=== PATIENT | female | born 1965 | race African-American/Black ===

== ENCOUNTER 2017-10-05 08:14 | Inpatient (IN) ==
[2017-10-05] MEDS ORDERED: ONDANSETRON 4 MG/2 ML VIAL IV STA (08:35)
[2017-10-05] MEDS ORDERED: SODIUM CHLORIDE 0.9% 2,000 ML IV STA (08:35)
[2017-10-05 08:55] LABS: Basophils % 0.2 % (0.0-0.8); Hematocrit 35.6 VOL% (35.7-47.0); Hemoglobin 11.8 GM/DL (12.0-16.0); Immature Granulocytes % 0.7 %; Immature Granulocytes Absolute 0.07 #; Lymphocytes # 1.6 10*3/uL (1.4-4.0); Lymphocytes % 15.5 % (21.3-54.2); Mean Corpuscular HGB Conc 33.1 GM/DL (32-36); Mean Corpuscular Hemoglobin 26 PG (27-34); Mean Corpuscular Volume 78.9 FL (87-102); Mean Platelet Volume 12.1 FL (9.6-12.0); Monocytes # 0.9 10*3/uL (0.11-0.8); Monocytes % 9.2 % (1.7-12.7); Neutrophils # 7.6 10*3/uL (1.4-7.4); Neutrophils % 74.4 % (38.7-73.9); Platelet Count 241 T/CUMM (130-400); Red Blood Count 4.51 MC/CUMM (3.8-5.5); Red Cell Distribution Width 11.7 % (9.3-17.3); White Blood Count 10.2 T/CUMM (4-12)
[2017-10-05 09:13] LABS: Albumin 3.8 G/DL (3.4-5.0); Bilirubin,Total 0.9 MG/DL (0.2-1.0); Calcium 9.3 MG/DL (8.5-10.1); Osmolality,Calculated 280.8 MOS/KG (273-304); Potassium 3.4 MMOL/L (3.5-5.1); Total Protein 8.4 G/DL (6.4-8.3)
[2017-10-05] MEDS ORDERED: ONDANSETRON 4 MG/2 ML VIAL ONE (09:28)
[2017-10-05] MEDS ORDERED: ONDANSETRON 4 MG/2 ML VIAL IV PRN (09:48)
[2017-10-05 09:56] LABS: Lactic Acid 1.5 MMOL/L (0.4-2.0)
[2017-10-05] MEDS ORDERED: FAMOTIDINE 20 MG/2 ML VIAL IV SCH (10:00)
[2017-10-05] MEDS ORDERED: CIPROFLOXACIN INJ 400 MG in PREMIX 1 EACH IV SCH (11:00)
[2017-10-05] MEDS: FAMOTIDINE 20 MG/2 ML VIAL IV SCH (11:05)
[2017-10-05] MEDS: metroNIDAZOLE INJ 500 MG in PREMIX 1 EACH IV SCH ×3 (11:05→21:05)
[2017-10-05] MEDS: SODIUM CHLORIDE 0.9% 1,000 ML IV SCH ×3 (11:06→21:06)
[2017-10-05 11:41] LABS: Apearance,Urine CLOUDY (Clear); Bilirubin,Urine Negative (Negative); Blood, Urine Moderate mg/dL (Negative); Glucose,Urine (UA) Negative (Negative); Ketones,Urine Negative (Negative); Mucus,Urine Occasional /LPF (Occasional); Nitrite,Urine Negative (Negative); Protein,Urine 100 MG/DL; RBC,Urine 4 /HPF (0-4); Squamous Epithelial Cell,Urine Occasional /HPF (0-10); Urine Color Yellow (Yellow); Urine Urobilinogen < 2.0 EU/DL (0.2-1.0); WBC,Urine 4 /HPF (0-6)
[2017-10-06] MEDS: CIPROFLOXACIN INJ 200 MG in PREMIX 1 EACH IV SCH ×2 (01:56→12:37)
[2017-10-06] MEDS: SODIUM CHLORIDE 0.9% 1,000 ML IV SCH ×3 (01:59→10:08)
[2017-10-06] MEDS: metroNIDAZOLE INJ 500 MG in PREMIX 1 EACH IV SCH ×4 (04:16→21:15)
[2017-10-06 07:59] LABS: Basophils % 0.1 % (0.0-0.8); Eosinophils % 0.1 % (0.00-10.9); Hematocrit 26.1 VOL% (35.7-47.0); Immature Granulocytes % 0.5 %; Immature Granulocytes Absolute 0.04 #; Lymphocytes % 27.7 % (21.3-54.2); Mean Corpuscular HGB Conc 32.6 GM/DL (32-36); Mean Corpuscular Hemoglobin 26 PG (27-34); Mean Corpuscular Volume 80.8 FL (87-102); Mean Platelet Volume 12.5 FL (9.6-12.0); Monocytes # 0.7 10*3/uL (0.11-0.8); Monocytes % 10.1 % (1.7-12.7); Neutrophils # 4.5 10*3/uL (1.4-7.4); Neutrophils % 61.5 % (38.7-73.9); Red Cell Distribution Width 11.8 % (9.3-17.3); White Blood Count 7.3 T/CUMM (4-12)
[2017-10-06 08:01] LABS: Hemoglobin 8.5 GM/DL (12.0-16.0); Platelet Count 124 T/CUMM (130-400); Red Blood Count 3.23 MC/CUMM (3.8-5.5)
[2017-10-06] MEDS: FAMOTIDINE 20 MG/2 ML VIAL IV SCH (08:15)
[2017-10-06 08:27] LABS: Albumin 2.7 G/DL (3.4-5.0); Bilirubin,Total 0.8 MG/DL (0.2-1.0); Calcium 8.2 MG/DL (8.5-10.1); Osmolality,Calculated 293.1 MOS/KG (273-304); Potassium 3.4 MMOL/L (3.5-5.1); Total Protein 6.1 G/DL (6.4-8.3)
[2017-10-06 08:49] LABS: Giant Platelets Few; Hypochromasia 1+
[2017-10-06 08:50] LABS: Microcytosis Slight; Ovalocytes Slight
[2017-10-06] MEDS ORDERED: DEXTROSE 5% NACL 0.9% 1,000 ML IV SCH (14:00)
[2017-10-06] MEDS ORDERED: POTASSIUM CHLORIDE INJ 10 MEQ in DEXTROSE 5% 1,000 ML IV SCH (15:00)
[2017-10-06 19:47] LABS: Hemoglobin 8.7 GM/DL (12.0-16.0); Immature Granulocytes % 0.5 %; Immature Granulocytes Absolute 0.03 #
[2017-10-06 20:00] LABS: Basophils % 0.3 % (0.0-0.8); Lymphocytes # 2.2 10*3/uL (1.4-4.0); Lymphocytes % 37.4 % (21.3-54.2); Mean Corpuscular HGB Conc 32.2 GM/DL (32-36); Mean Corpuscular Hemoglobin 26 PG (27-34); Mean Corpuscular Volume 81.6 FL (87-102); Mean Platelet Volume 11.7 FL (9.6-12.0); Monocytes # 0.6 10*3/uL (0.11-0.8); Monocytes % 10.2 % (1.7-12.7); Neutrophils # 3.1 10*3/uL (1.4-7.4); Neutrophils % 51.6 % (38.7-73.9); Platelet Count 187 T/CUMM (130-400); Red Blood Count 3.31 MC/CUMM (3.8-5.5); Red Cell Distribution Width 11.6 % (9.3-17.3)
[2017-10-06 21:01] LABS: Lymphocytes 28 % (20-55); Nucleated Red Blood Cells 1 (0-5); Platelet Estimate Normal; Segmented Neutrophils 65 % (50-85); Total Cells Counted 100
[2017-10-06] MEDS: POTASSIUM CHLORIDE INJ 20 MEQ in LACTATED RINGERS 1,000 ML IV SCH (21:38)
[2017-10-07] MEDS: CIPROFLOXACIN INJ 200 MG in PREMIX 1 EACH IV SCH ×2 (01:56→15:37)
[2017-10-07] MEDS: metroNIDAZOLE INJ 500 MG in PREMIX 1 EACH IV SCH ×3 (04:16→19:22)
[2017-10-07 06:03] LABS: Basophils % 0.5 % (0.0-0.8); Eosinophils % 0.2 % (0.00-10.9); Hematocrit 28.4 VOL% (35.7-47.0); Hemoglobin 9.1 GM/DL (12.0-16.0); Immature Granulocytes % 0.3 %; Immature Granulocytes Absolute 0.02 #; Lymphocytes # 2.9 10*3/uL (1.4-4.0); Mean Corpuscular Hemoglobin 26 PG (27-34); Mean Corpuscular Volume 81.6 FL (87-102); Mean Platelet Volume 11.5 FL (9.6-12.0); Monocytes # 0.7 10*3/uL (0.11-0.8); Monocytes % 11.2 % (1.7-12.7); Neutrophils # 2.4 10*3/uL (1.4-7.4); Neutrophils % 39.8 % (38.7-73.9); Platelet Count 218 T/CUMM (130-400); Red Blood Count 3.48 MC/CUMM (3.8-5.5); Red Cell Distribution Width 11.6 % (9.3-17.3); White Blood Count 6.1 T/CUMM (4-12)
[2017-10-07 06:22] LABS: Albumin 3.2 G/DL (3.4-5.0); Bilirubin,Total 1.4 MG/DL (0.2-1.0); Osmolality,Calculated 284.3 MOS/KG (273-304); Potassium 3.2 MMOL/L (3.5-5.1); Total Protein 7.1 G/DL (6.4-8.3)
[2017-10-07 06:28] LABS: Giant Platelets Few; Hypochromasia 1+; Lymphocytes 41 % (20-55); Microcytosis Slight; Ovalocytes Slight; Platelet Estimate Adequate; Segmented Neutrophils 45 % (50-85); Total Cells Counted 100
[2017-10-07 08:06] LABS: Hepatitis A Ab IgM Quant 0.08 Index; Hepatitis A Ab IgM Result Negative (Negative); Hepatitis B Core IgM Quant 0.15 Index; Hepatitis B Core IgM Result Negative (Negative); Hepatitis B Surface Ag Result Negative (Negative); Hepatitis C Virus Ab Quant 0.04 Index; Hepatitis C Virus Ab Result Negative (Negative)
[2017-10-07] MEDS: POTASSIUM CHLORIDE INJ 20 MEQ in LACTATED RINGERS 1,000 ML IV SCH (08:42)
[2017-10-07] MEDS ORDERED: MAGNESIUM SULF RIDER 2 GM in PREMIX 1 EACH IV PRN (08:45)
[2017-10-07] MEDS ORDERED: MAGNESIUM SULF RIDER 4 GM in PREMIX 1 EACH IV PRN (08:45)
[2017-10-07] MEDS: FAMOTIDINE 20 MG/2 ML VIAL IV SCH (09:09)
[2017-10-07] MEDS ORDERED: POTASSIUM PHOSPHATE 30 MMOL in SODIUM CHLORIDE 0.9% 250 ML IV ONE (10:00)
[2017-10-07] MEDS: PANTOPRAZOLE 40 MG TABLET PO SCH (19:22)
[2017-10-08] MEDS: CIPROFLOXACIN INJ 200 MG in PREMIX 1 EACH IV SCH ×2 (02:02→16:20)
[2017-10-08] MEDS: metroNIDAZOLE INJ 500 MG in PREMIX 1 EACH IV SCH ×4 (03:01→20:40)
[2017-10-08 05:28] LABS: Basophils % 0.4 % (0.0-0.8); Eosinophils # 0.1 10*3/uL (0.0-0.87); Eosinophils % 1.7 % (0.00-10.9); Hematocrit 24.2 VOL% (35.7-47.0); Hemoglobin 8.1 GM/DL (12.0-16.0); Immature Granulocytes % 0.6 %; Immature Granulocytes Absolute 0.03 #; Lymphocytes # 2.2 10*3/uL (1.4-4.0); Lymphocytes % 46.4 % (21.3-54.2); Mean Corpuscular HGB Conc 33.5 GM/DL (32-36); Mean Corpuscular Hemoglobin 27 PG (27-34); Mean Corpuscular Volume 79.6 FL (87-102); Mean Platelet Volume 11.4 FL (9.6-12.0); Monocytes # 0.6 10*3/uL (0.11-0.8); Neutrophils # 1.8 10*3/uL (1.4-7.4); Neutrophils % 37.9 % (38.7-73.9); Platelet Count 225 T/CUMM (130-400); Red Blood Count 3.04 MC/CUMM (3.8-5.5); Red Cell Distribution Width 11.5 % (9.3-17.3); White Blood Count 4.7 T/CUMM (4-12)
[2017-10-08] MEDS: POTASSIUM CHLORIDE INJ 20 MEQ in LACTATED RINGERS 1,000 ML IV SCH (05:57)
[2017-10-08 06:12] LABS: Albumin 2.8 G/DL (3.4-5.0); Bilirubin,Direct 0.27 MG/DL (0.0-0.20); Bilirubin,Total 1.3 MG/DL (0.2-1.0); Total Protein 6.1 G/DL (6.4-8.3)
[2017-10-08 06:14] LABS: Giant Platelets Few; Hypochromasia 1+; Lymphocytes 52 % (20-55); Ovalocytes Slight; Platelet Estimate Adequate; Segmented Neutrophils 40 % (50-85); Total Cells Counted 100
[2017-10-08 06:15] LABS: Microcytosis Slight
[2017-10-08 06:22] LABS: Albumin 2.9 G/DL (3.4-5.0); Bilirubin,Total 1.2 MG/DL (0.2-1.0); Calcium 8.3 MG/DL (8.5-10.1); Osmolality,Calculated 280.3 MOS/KG (273-304); Potassium 3.5 MMOL/L (3.5-5.1); Total Protein 6.1 G/DL (6.4-8.3)
[2017-10-08] MEDS: PANTOPRAZOLE 40 MG TABLET PO SCH ×2 (06:25→18:06)
[2017-10-08] MEDS ORDERED: SODIUM CHLORIDE 0.9% 1,000 ML IV PRN (11:08)
[2017-10-08] MEDS: amLODIPine 5 MG TABLET PO SCH (17:12)
[2017-10-09] MEDS: metroNIDAZOLE INJ 500 MG in PREMIX 1 EACH IV SCH ×2 (02:15→08:27)
[2017-10-09 03:16] LABS: Basophils % 0.5 % (0.0-0.8); Eosinophils # 0.1 10*3/uL (0.0-0.87); Eosinophils % 1.6 % (0.00-10.9); Hemoglobin 11.4 GM/DL (12.0-16.0); Immature Granulocytes % 0.5 %; Immature Granulocytes Absolute 0.04 #; Lymphocytes # 2.9 10*3/uL (1.4-4.0); Lymphocytes % 38.7 % (21.3-54.2); Mean Corpuscular HGB Conc 33.5 GM/DL (32-36); Mean Corpuscular Hemoglobin 27 PG (27-34); Mean Corpuscular Volume 81.5 FL (87-102); Mean Platelet Volume 11.1 FL (9.6-12.0); Monocytes # 0.9 10*3/uL (0.11-0.8); Monocytes % 12.6 % (1.7-12.7); Neutrophils # 3.4 10*3/uL (1.4-7.4); Neutrophils % 46.1 % (38.7-73.9); Platelet Count 259 T/CUMM (130-400); Red Blood Count 4.17 MC/CUMM (3.8-5.5); Red Cell Distribution Width 11.7 % (9.3-17.3); White Blood Count 7.5 T/CUMM (4-12)
[2017-10-09] MEDS: CIPROFLOXACIN INJ 200 MG in PREMIX 1 EACH IV SCH (04:00)
[2017-10-09 06:14] LABS: Anisocytosis Slight; Hypochromasia Slight; Microcytosis Slight; Platelet Estimate Normal
[2017-10-09] MEDS: PANTOPRAZOLE 40 MG TABLET PO SCH (07:10)
[2017-10-09 07:53] VITALS: BP 136/90
[2017-10-09] MEDS: amLODIPine 5 MG TABLET PO SCH (08:26)
[2017-10-09 16:56] LABS: Cryptosporidium Antigen Stool Negative (Negative)
== END 2017-10-09 11:39 | disposition home or self-care (01) | DRG 682 ==
LOC: N.ED 08:14 → N.EDINP 09:47 → N.2E 10:39
PROVIDERS: ADMIT Internal Medicine; ATTEND Internal Medicine